=== PATIENT | female | born 2000 | race Caucasian/White ===

== ENCOUNTER 2020-08-06 15:35 | Emergency (ER) | payer OTHER ==
[2020-08-06 18:35] LABS: BILIRUBIN NEGATIVE (NEGATIVE); BLOOD 3+ Ery/uL (NEGATIVE); COLOR YELLOW (YELLOW); GLUCOSE (U) NORMAL (NORMAL); LEUKOCYTES NEGATIVE Leu/uL (NEGATIVE); NITRITE NEGATIVE (NEGATIVE); PROTEIN TRACE (LOW) mg/dL (NEGATIVE)
[2020-08-06 18:38] LABS: CLARITY CLOUDY (CLEAR)
[2020-08-06 18:46] LABS: AMORPHOUS URATES CRYSTALS TRACE; BACTERIA TRACE; URINARY RBC 20-50
[2020-08-06 19:01] LABS: BASOPHIL 0.4 % (0-2); EOSINOPHIL 2.9 % (0-5); HCT 38.8 % (37.0-47.0); HGB 12.5 g/dl (12.5-16.0); LYMPHOCYTE 29.6 % (15-48); MCH 30.8 pg (25.0-31.0); MCHC 32.2 g/dL (32.0-36.0); MCV 95.6 fL (78.0-100.0); MONOCYTE 4.6 % (0-12); MPV 11.4 fL (6.0-9.5); NEUTROPHIL 62.3 % (41-80); NRBC 0; PLT 201 K/uL (150-400); RBC 4.06 M/uL (4.20-5.40); RDW 11.5 % (11.5-14.0); WBC 9.8 K/uL (4.0-10.5)
[2020-08-06 19:12] LABS: ALBUMIN 3.6 g/dL (3.4-5.0); BILIRUBIN - TOTAL 0.2 mg/dL (0.2-1.0); BUN/CREAT RATIO (CALC) 12.3 RATIO; CREATININE 0.65 mg/dL (0.51-0.95); GLOBULIN (CALCULATION) 3.4 g/dL; POTASSIUM 3.4 mmol/L (3.5-5.1)
[2020-08-10 00:06] LABS: CHLAMYDIA TRACHOMATIS, NAA Negative (Negative); NEISSERIA GONORRHOEAE, NAA Negative (Negative)
== END 2020-08-06 19:56 | disposition home or self-care (01) ==
LOC: FER 15:35
PROVIDERS: Emergency Medicine; Nurse Practitioner Family
DX: O20.9 Hemorrhage in early pregnancy, unspecified (principal); O99.891 Other specified diseases and conditions complicating pregnancy; R10.31 Right lower quadrant pain; O99.341 Other mental disorders complicating pregnancy, first trimester; F31.9 Bipolar disorder, unspecified; Z79.899 Other long term (current) drug therapy; Z88.0 Allergy status to penicillin; Z88.8 Allergy status to other drugs, medicaments and biological substances; Z3A.01 Less than 8 weeks gestation of pregnancy
CPT/HCPCS: 36415; 76801; 80053; 81001; 84702; 85025; 86900; 86901; 87210; 87491; 87591

== ENCOUNTER 2020-08-14 22:25 | Emergency (ER) | payer OTHER ==
[2020-08-14 23:03] LABS: BASOPHIL 0.3 % (0-2); EOSINOPHIL 4.1 % (0-5); HCT 40.2 % (37.0-47.0); HGB 13.5 g/dl (12.5-16.0); LYMPHOCYTE 30.4 % (15-48); MCH 31.2 pg (25.0-31.0); MCHC 33.6 g/dL (32.0-36.0); MCV 92.8 fL (78.0-100.0); MONOCYTE 5.9 % (0-12); MPV 11.4 fL (6.0-9.5); NRBC 0; PLT 205 K/uL (150-400); RBC 4.33 M/uL (4.20-5.40); RDW 11.3 % (11.5-14.0)
[2020-08-14 23:13] LABS: BILIRUBIN - TOTAL 0.2 mg/dL (0.2-1.0); BUN/CREAT RATIO (CALC) 17.5 RATIO; CREATININE 0.57 mg/dL (0.51-0.95); GLOBULIN (CALCULATION) 3.9 g/dL; POTASSIUM 3.7 mmol/L (3.5-5.1); TOTAL PROTEIN 7.9 g/dL (6.4-8.2)
[2020-08-14 23:54] LABS: BILIRUBIN NEGATIVE (NEGATIVE); BLOOD NEGATIVE Ery/uL (NEGATIVE); CLARITY CLEAR (CLEAR); COLOR YELLOW (YELLOW); GLUCOSE (U) NORMAL (NORMAL); LEUKOCYTES NEGATIVE Leu/uL (NEGATIVE); NITRITE NEGATIVE (NEGATIVE); PROTEIN NEGATIVE (NEGATIVE); UROBILINOGEN 0.2 mg/dL (0.2-1.0)
== END 2020-08-15 01:15 | disposition home or self-care (01) ==
LOC: FER 22:25
PROVIDERS: Emergency Medicine
DX: R07.9 Chest pain, unspecified (principal); R06.02 Shortness of breath; F17.210 Nicotine dependence, cigarettes, uncomplicated; Z88.0 Allergy status to penicillin; Z88.8 Allergy status to other drugs, medicaments and biological substances; Z20.822 Contact with and (suspected) exposure to COVID-19
CPT/HCPCS: 36415; 71045; 80053; 81003; 84484; 85025; 85379; 93005; U0002

== ENCOUNTER 2020-11-08 11:03 | Emergency (ER) | payer OTHER | END 2020-11-08 12:05 | disposition home or self-care (01) | LOC: FER 11:03 | DX: O9A.212 Injury, poisoning and certain other consequences of external causes complicating pregnancy, second trimester (principal); S30.1XXA Contusion of abdominal wall, initial encounter; O99.332 Smoking (tobacco) complicating pregnancy, second trimester; F17.210 Nicotine dependence, cigarettes, uncomplicated; Z88.0 Allergy status to penicillin; Z88.8 Allergy status to other drugs, medicaments and biological substances; W19.XXXA Unspecified fall, initial encounter; Y92.002 Bathroom of unspecified non-institutional (private) residence as the place of occurrence of the external cause; Z3A.19 19 weeks gestation of pregnancy | CPT/HCPCS: 99283 ==

== ENCOUNTER 2021-08-04 12:58 | Emergency (ER) | payer OTHER ==
[~2021-08-04] VITALS: Ht 170.2 cm; Wt 63.8 kg
[2021-08-04 16:18] LABS: BASOPHIL 0.2 % (0-2); EOSINOPHIL 3.4 % (0-5); HCT 39.8 % (37.0-47.0); HGB 13.1 g/dl (12.5-16.0); LYMPHOCYTE 32.6 % (15-48); MCHC 32.9 g/dL (32.0-36.0); MCV 88.1 fL (78.0-100.0); MPV 11.8 fL (6.0-9.5); NEUTROPHIL 58.6 % (41-80); NRBC 0; PLT 211 K/uL (150-400); RBC 4.52 M/uL (4.20-5.40); RDW 12.6 % (11.5-14.0); WBC 8.5 K/uL (4.0-10.5)
[2021-08-04 16:19] LABS: BILIRUBIN NEGATIVE (NEGATIVE); BLOOD NEGATIVE Ery/uL (NEGATIVE); CLARITY HAZY (CLEAR); COLOR YELLOW (YELLOW); GLUCOSE (U) NORMAL (NORMAL); LEUKOCYTES NEGATIVE Leu/uL (NEGATIVE); NITRITE NEGATIVE (NEGATIVE); PROTEIN NEGATIVE (NEGATIVE); SPECIFIC GRAVITY 1.025 (1.001-1.030)
[2021-08-04 17:03] LABS: ALBUMIN 3.8 g/dL (3.4-5.0); BILIRUBIN - TOTAL 0.3 mg/dL (0.2-1.0); BUN/CREAT RATIO (CALC) 16.1 RATIO; CREATININE 0.56 mg/dL (0.51-0.95); GLOBULIN (CALCULATION) 3.6 g/dL; POTASSIUM 3.9 mmol/L (3.5-5.1); TOTAL PROTEIN 7.4 g/dL (6.4-8.2)
== END 2021-08-04 19:00 | disposition home or self-care (01) ==
LOC: FER 12:58
PROVIDERS: Emergency Medicine
DX: R55 Syncope and collapse (principal); R42 Dizziness and giddiness; F17.290 Nicotine dependence, other tobacco product, uncomplicated; Z88.0 Allergy status to penicillin; Z88.8 Allergy status to other drugs, medicaments and biological substances
CPT/HCPCS: 36415; 70450; 71045; 80053; 81003; 85025; 85379; 93005; J7030

== ENCOUNTER 2021-10-12 14:38 | Emergency (ER) | payer OTHER ==
[2021-10-12 15:51] LABS: BASOPHIL 0.3 % (0-2); EOSINOPHIL 3.4 % (0-5); HCT 40.3 % (37.0-47.0); HGB 13.5 g/dl (12.5-16.0); MCH 29.3 pg (25.0-31.0); MCHC 33.5 g/dL (32.0-36.0); MCV 87.6 fL (78.0-100.0); MPV 11.7 fL (6.0-9.5); NRBC 0; PLT 238 K/uL (150-400); RDW 11.9 % (11.5-14.0); WBC 8.9 K/uL (4.0-10.5)
[2021-10-12 16:07] LABS: BUN/CREAT RATIO (CALC) 11.1 RATIO; CREATININE 0.63 mg/dL (0.51-0.95); POTASSIUM 3.6 mmol/L (3.5-5.1)
[2021-10-12 16:17] LABS: BILIRUBIN 1+ mg/dL (NEGATIVE); BLOOD 3+ Ery/uL (NEGATIVE); CLARITY HAZY (CLEAR); COLOR YELLOW (YELLOW); GLUCOSE (U) NORMAL (NORMAL); LEUKOCYTES NEGATIVE Leu/uL (NEGATIVE); NITRITE NEGATIVE (NEGATIVE); PROTEIN NEGATIVE (NEGATIVE); SPECIFIC GRAVITY 1.025 (1.001-1.030)
[2021-10-12 16:25] LABS: BACTERIA TRACE; MUCOUS TRACE; URINARY RBC TNTC; URINARY WBC RARE
== END 2021-10-12 16:40 | disposition home or self-care (01) ==
LOC: FER 14:38
PROVIDERS: Nurse Practitioner Family
DX: N92.0 Excessive and frequent menstruation with regular cycle (principal); F17.290 Nicotine dependence, other tobacco product, uncomplicated; Z88.0 Allergy status to penicillin; Z88.8 Allergy status to other drugs, medicaments and biological substances
CPT/HCPCS: 36415; 80048; 81001; 85025; 86850; 86900; 86901; 99284; J7030